=== PATIENT | male | born 1995 | race Caucasian/White ===

== ENCOUNTER 2018-11-17 20:26 | Emergency (ER) | payer OTHER, SELFPAY ==
[2018-11-17 20:27] VITALS: BP 156/70; PULSE 84; RESP 16; TEMP 37.2; O2SAT 98; BMI 28.2
--- NOTE | 2018-11-17 20:34 | RAD_ITS ---
STUDY: X-RAY - LEFT SHOULDER REASON FOR EXAM: Male, 23 years old. left arm/shoulder smashed by cow TECHNIQUE: 2 view(s) of the shoulder. COMPARISON: None. FINDINGS: Normal glenohumeral articulation. Normal acromioclavicular joint. Normal acromion. Normal humeral head and visualized proximal humerus. The soft tissue structures are unremarkable. Normal visualized pulmonary apex. RAD/Shoulder min 2 Views IMPRESSION: Normal x-ray examination of the shoulder. Electronically Signed: Aura Back, at 21:08 EDT Tel , Service support ,
--- NOTE | 2018-11-17 20:50 | RAD_ITS ---
STUDY: X-RAY - LEFT HUMERUS REASON FOR EXAM: Male, 23 years old. left arm/shoulder smashed by cow TECHNIQUE: 2 view(s) of the humerus. COMPARISON: None. FINDINGS: Normal visualized humerus. There is no demonstrated fracture or osseous destructive process. There is no demonstrated soft tissue abnormality. RAD/Humerus min 2 Views IMPRESSION: Normal x-ray examination of the humerus. Electronically Signed: Aura Back, at 21:08 EDT Tel , Service support ,
--- NOTE | 2018-11-17 21:34 | ED.VISSUMM ---
- ER Visit Summary Date of Service: 11/17/18 Chief Complaint: [Injury to left shoulder] History of Present Illness: The patient is a 23 M [presents to the emergency department with an injury to his left shoulder that occurred today around 2 PM. Patient states that he was run over by a cow. Patient denies head injury. He denies neck pain. Denies chest pain. Denies abdominal pain. Patient is right-hand dominant.] Physical Examination: [HEENT-PERRLA, EOMI. Cranial nerves II through XII grossly intact. TMs clear. Mucous membranes moist. No adenopathy. Cardiovascular-regular rate and rhythm without murmur or ectopy Lungs-clear to auscultation, chest wall stable without crepitus or subcu emphysema Abdomen-normoactive bowel sounds, soft, nontender, no rebound or rigidity, no peritoneal signs. Extremities-intact ?4, normal range of motion, normal pulses, atraumatic. Left shoulder-patient has diffuse tenderness about the glenohumeral joint with limited range of motion secondary to pain. There is no obvious deformity. No sulcus sign. He is neurovascular intact distally. Patient also has some diffuse tenderness about the left humerus without obvious deformity.] Test Results: [Trace of the left shoulder and left humerus obtained were normal.] Emergency Department Course and Treatment: She was given a sling. [] Treatment Plan: [She will be given sling and a prescription for a few Altheimer for severe pain as well as naproxen. Patient given referral to orthopedics for follow-up within the next 5 to 7 days.] Disposition: [Discharged home in stable condition.] Impression: [Left shoulder sprain-possible internal derangement] This note was generated with [employer] dictation software. It may contain incorrect words, spelling, and punctuation that were not noted in review of the chart prior to signing ED Disposition - Plan for ED Patient: Referrals: Care Physician,No Primary [Primary Care Provider] -
--- NOTE | 2018-11-17 21:36 | ED.DEP ---
ED Disposition - Plan for ED Patient: Instructions: CONTUSION, Upper Extremity, Shoulder Sprain Prescriptions: Naproxen [Naprosyn] 500 mg PO BID PRN #20 tab Prescription Printed Hydrocodone Bitart/Apap 5-325 [[place] 5MG-325MG] 1 tab PO Q4H PRN PRN 2 Days #10 tab PRN Reason: Pain Prescription Printed Referrals: Care Physician,No Primary [Primary Care Provider] - Natalie Franklni DO [STAFF PHYSICIAN] - 5-7 Days
[2018-11-17 21:44] VITALS: PULSE 76; O2SAT 99
== END 2018-11-17 21:50 | disposition home or self-care (01) ==
PROVIDERS: Emergency Provider Emergency Medicine
DX: S43.402A Unspecified sprain of left shoulder joint, initial encounter (principal); W55.29XA Other contact with cow, initial encounter; Y93.9 Activity, unspecified; Y92.9 Unspecified place or not applicable; Z72.0 Tobacco use
CPT/HCPCS: 73030; 73060; 99283